=== PATIENT | male | born 1950 | race African-American/Black ===

== ENCOUNTER 2020-08-09 10:52 | Emergency (ER) | payer OTHER ==
[2020-08-09] MEDS ORDERED: HYDROCODON-ACE1 EAC4 PO (13:28)
[2020-08-09] MEDS ORDERED: IBUPROFEN600 MG PO (13:49)
== END 2020-08-09 14:57 | disposition home or self-care (01) ==
LOC: ER1 10:52
DX: S82.002A Unspecified fracture of left patella, initial encounter for closed fracture (principal); W00.0XXA Fall on same level due to ice and snow, initial encounter
CPT/HCPCS: 29530; 73564; 73590; 99283